=== PATIENT | female | born 1995 | race Hispanic/Latino ===

== ENCOUNTER 2016-11-12 21:48 | Inpatient (IN) | payer OTHER ==
[~2016-11-12] VITALS: Ht 162.6 cm; Wt 107.5 kg
[~2016-11-12 21:48] MED LIST: ALBUTEROL SULFAT3 M1 INH; FLEXERIL10 MG PO; IBUPROFEN800 M1 PO; LEVSIN-SL0.125 MG SL; MECLIZINE HCL25 MG PO; MOBIC 15MG15 MG PO; MONTELUKAST SOD10 MG PO; MOTRIN 600 MG600 MG PO; MOTRIN800 MG PO; NASONEX0.05 MG/Ac NAS; PERCOCET 325 MG1 TA2 PO; PRENATAL1 TA2 PO; PROAIR HFA0.09 MG/Ac INH; PROTONIX 40MG T40 MG PO; TRAMADOL HCL50 M1 PO; TYLENOL #31 TAB PO; ZOFRAN ODT4 M1 SL
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
[2016-11-12 22:50] LABS: ABSOLUTE BASOPHIL COUNT 0 /CUMM (0.0-0.2); ABSOLUTE EOSINOPHIL COUNT 0.1 /CUMM (0.0-0.7); ABSOLUTE GRANULOCYTE CT 7.9 /CUMM (1.4-6.5); ABSOLUTE MONOCYTE COUNT 0.8 /CUMM (0.10-0.60); BASOPHIL % 0.3 % (0.0-2.0); EOSINOPHIL % 0.5 % (0-5); GRANULOCYTE % 73.6 % (42.2-75.2); HEMATOCRIT 39.6 % (37-47); MEAN CORPUSCULAR HGB 26.8 PG (27.0-31.0); MEAN CORPUSCULAR HGB CONC 33.1 G/DL (33.0-37.0); MEAN CORPUSCULAR VOLUME 80.9 FL (81.0-99.0); MEAN PLATELET VOLUME 8.4 FL (7.4-10.4); PLATELET COUNT 307 /CUMM (130-400); RBC DISTRIBUTION WIDTH 15.5 % (11.5-14.5); RED BLOOD CELL CT 4.89 /CUMM (4.20-5.40); WHITE BLOOD CELL COUNT 10.7 /CUMM (4.8-10.8)
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
[2016-11-13] MEDS ORDERED: ALBUTEROL2.5 MG/3 M INH/SOL (15:41)
[2016-11-13] MEDS ORDERED: PROAIR HFA8.5 GM INH (15:42)
[2016-11-13] MEDS ORDERED: IBUPROFEN800 M1 PO (15:42)
[2016-11-13] MEDS ORDERED: MONTELUKAST SOD10 M1 PO (15:42)
[2016-11-13 19:48] VITALS: BP 139/74
[2016-11-14 07:59] VITALS: BP 147/91
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
[2016-11-14 12:26] VITALS: BP 141/82
--- NOTE | 2016-11-14 13:23 | History & Physical ---
General Information and HPI History of Present Illness: This young female was admitted for the first time to [facility] because of psychotic behavior. She also reports that she was admitted in [place] in a psychiatric hospital in the past and was diagnosed with psychotic behavior. She does admit that she was very angry with her fianc and started breaking things in the house at which point she called 911 for some help and was brought to the hospital she denies any specific physical problems recently. She has a history of bronchial asthma since age 2 and she claims that he rarely she takes albuterol inhaler as needed and this winter has been fairly good and she has not needed much of inhaler. He also claims that she has a history of polycystic ovarian syndrome and sees her dynamics ax technical architect for that and has been treated for that. There is no other significant history. Allergies/Medications Allergies: Coded Allergies: NO KNOWN ALLERGIES (03/17/16) Home Med list Albuterol Sulfate 2.5 MG/3 ML (0.083 %) VIAL.NEB 1 Vial INH/SUZIE PRN ASTHMA ( Reported) Albuterol Sulfate (Proair Hfa) 90 MCG HFA.AER.AD 2 PUF INH PRN ASTHMA ( Reported) Ibuprofen 800 MG TABLET 1 TAB PO TID PRN PAIN (Reported) Montelukast Sodium 10 MG TABLET 1 TAB PO DAILY ASTHMA (Reported) Past History Travel History Traveled to [place] past 21 day No Medical History Neurological: NONE EENT: NONE Cardiovascular: NONE Respiratory: asthma Gastrointestinal: NONE Hepatic: NONE Renal: NONE Musculoskeletal: NONE Psychiatric: anxiety, depression, psychosis, ADHD Endocrine: NONE Blood Disorders: NONE Cancer(s): NONE 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 Denies: no symptoms. EENTM: Denies: no symptoms. Cardiovascular: Denies: no symptoms. Respiratory: Denies: no symptoms. GI: Denies: no symptoms. Genitourinary: Reports: see HPI. Denies: no symptoms. Musculoskeletal: Denies: no symptoms. Skin: Denies: no symptoms. Neurological/Psychological: Reports: see HPI, anxiety, emotional problems. Hematologic/Endocrine: Denies: no symptoms. Immunologic/Allergic: Denies: no symptoms. All Other Systems: Reviewed and Negative Exam & Diagnostic Data Last 24 Hrs of Vital Signs/I&O Vital Signs Date Time Temp Pulse Resp B/P Pulse O2 O2 Flow FiO2 Ox Delivery Rate 11/14 1226 94 141/82 11/14 0759 97.1 97 147/91 11/13 1948 99.2 88 139/74 11/13 1604 98.0 89 16 136/64 98 Room Air Intake & Output 11/14 1600 11/14 0800 11/14 0000 Intake Total Output Total Balance Patient 237 lb Weight Physical Exam General Appearance Alert, Oriented X3, Cooperative, No Acute Distress Skin No Rashes, No Breakdown, No Significant Lesion HEENT Atraumatic, PERRLA, EOMI, Mucous Membr. moist/pink Neck Supple, No JVD, No thryomegaly, +2 Carotid Pulse wo Bruit Lymphatic Cervical nl Cardiovascular Regular Rate, Normal S1, Normal S2, No Murmurs, Gallops, Rubs Lungs Clear to Auscultation, Normal Air Movement Abdomen Normal Bowel Sounds, Soft, No Tenderness, No Hepatospenomegaly, No Masses Neurological Exam Findings: Normal Gait, Normal Speech, Strength at 5/5 X4 Ext, Normal Tone, Cranial Nerves 3-12 NL, Reflexes 2+ Cranial Nerves II through XII: Within normal limits Extremities No Clubbing, No Cyanosis, No Edema, No Tenderness/Swelling Assessment/Plan Assessment: This young overweight female was admitted to the hospital for nonspecific psychosis for the first time. She has a history of previous admission in a psychiatric hospital in [place] is not taking any psychiatric medication as outpatient and has not been seeing any psychiatrist in the area. From medical standpoint she claims to have a history of bronchial asthma but is not using much inhaler recently because her breathing is fine and there are no physical signs of any asthma at this time. We can continue her on albuterol inhaler on a when necessary basis but she does not require any other specific treatment or workup. Her basic blood work including CBC electrolytes liver function are normal and the urine toxicology screen is negative for any drugs of abuse. She does not require any other workup from medical standpoint and will be seen when necessary basis As Ranked By This Provider Problem List: 1. Suicidal ideation 2. Anxiety 3. Asthma Miscellaneous Miscellaneous Documentation Attending Case Discussed With: MARGARET LONDONO MD Primary Care Physician: SUYAPA FREY APRN Patient sees these Specialists none Level of Patient Care: PILLO Quiros Attending MD Review Statement Attending Statement Attending MD Statement: examined this patient, reviewed EMR data (avail), discussed with nursing Attending Assessment/Plan: This young overweight female is admitted for psychotic behavior. She has previous history of psychosis as well as a history of bronchial asthma for which she uses Ventolin inhaler very rarely on a when necessary basis. She is stable from medical standpoint at this time and does not need any workup or treatment.
[2016-11-14 15:48] VITALS: BP 152/91
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
--- NOTE | 2016-11-14 16:24 | SOCIAL WORKER [place] PLAN PSYCH ---
Treatment Plan - Please Document: - Evidence that there is ongoing collaboration between - the patient and the interdisciplinary team, - including the patient's active participation and - responsibility for engaging in the treatment regimen, - and that the treatment plan is individualized and - relevant to the patient's conditions. - Treatment plan should reflect documentation indicating - that all active therapeutic efforts are included. Strengths/Capabilities: Pt is asking for help Pt is aware of mental health symptoms Physical Limitations (Interventions): None reported Patient Identified Trmt Goals: "I need to get back into therapy" Discharge Plan: [facility] Problem/Goals #1 Problem #1: depression Goal (Short Term): patient will attend 75% of groups Goal (Long-Term): patient will commit to Intensive Outpatient treatment for support Interventions: patient will be offered medication management with the PULMONARY PHYSICIAN, patient will be offered groups on coping skills, symptom management, relaxation, art therapy. Orthotic Fitter will hold family meeting and help assist with aftercare treatment. DSM5/PS Stressors/Medical Prob Diagnosis' (DSM 5, Stressors, Medical): F32.9 Unspecified Depression, F43.10 PTSD Unspecified, Z60.9 Unspecified Problems related to Social Environment, Unemployed Current GAF: 30 Treatment Team - Responsibilities of members of the treatment team include: - Medication Management- MD or PULMONARY PHYSICIAN - Medication Administration and Monitoring- Nurse - Group Therapy- Occupational Therapist - 1:1 Therapy,Disch Planning,family involvement-Orthotic Fitter
[2016-11-14 19:55] VITALS: BP 140/96
[2016-11-15 08:01] VITALS: BP 128/92
--- NOTE | 2016-11-15 08:17 | CP SOUTH PROGRESS NOTE PSYCH ---
Psych (Inpt) Progress Note Progress Note Include the following elements, when applicable: Involvement in the active treatment of the patient with behavioral observations of the patient and the patient's response to the treatment. Review of the ongoing treatment process in the context of the treatment plan. Indication of how multi-disciplinary staff members are carrying out the treatment plan. Plans for future interventions and recommendations for revision of the treatment plan. Liaison with other physicians/providers. Progress Note: [I discussed this patient's progress to date, current mental status, treatment process in the context of the treatment plan, and discharge planning with staff/ team in the daily morning inpatient team meeting. I also met with the patient myself in individual session.] SUBJECTIVE: "I feel good." OBJECTIVE: Current Medications Sig/Katya Start time Last Medication Dose Route Stop Time Status Admin Albuterol Sulfate 2 PUF Q4 HRS NEEDED PRN 11/13 2300 AC 11/14 INH 1113 Citalopram 20 MG DAILY 11/14 1000 CAN Hydrobromide PO Diphenhydramine HCl 50 MG Q6-PRN PRN 11/14 1115 AC PO Ibuprofen 800 MG TID PRN 11/13 2300 AC 11/14 PO 2116 Montelukast Sodium 10 MG 2200 11/14 2200 AC 11/14 PO 2116 Multivitamins 1 TAB 0800 11/14 1700 AC 11/14 PO 1748 Risperidone 0.25 MG BID 11/13 2330 DC 11/13 PO 2322 Trazodone HCl 50 MG AT BEDTIME NEED.. 11/13 2300 DC PO Vital Signs Date Time Temp Pulse Resp B/P Pulse O2 O2 Flow FiO2 Ox Delivery Rate 11/15 0801 98.1 98 128/92 11/14 1955 98.3 97 140/96 11/14 1548 93 152/91 11/14 1226 94 141/82 ASSESSMENT: Chart, progress notes, VS, labs, and medication list were reviewed. Met with patient today, together with Alondra Ugarte LCSW, and the patient's fiance, Abram, for a family meeting. The patient's psychiatric history, treatment progress to date, level of safety and discharge planning were reviewed. The patient's fiance, Abram, expressed no safety concerns with the patient returning home, however related that she needs therapy. The patient and her fiance, Abram, was in favor of discharge plan to follow-up at [facility] for psychiatric symptom management. The patient refused trials of psychotropics given current focus on getting , despite educating the patient on the risks/benefits of psychotropics. Reviewed with patient that if needed, medications could be further explored during IOP course. Patient was agreeable to information and verbalized understanding of education. Today, on the date of discharge, the patient presented alert and oriented to person, place, time and situation. Affect was full-range and bright. Mood was euthymic. Speech was normal in rate, tone and volume. Eye contact was appropriate. She reported her appetite and sleep were good. She denied having nightmares. She reported depression of 0/10 (10 being the worst) and anxiety of 0/10 (10 being the worst). She denied having panic attacks, intrusive or racing thoughts. She denied feeling hopeless, helpless, worthless and guilty. She denied active and passive suicidal ideation, plans and intent. She stated and also believed she will not harm herself or others. She identified protective factors of her fiance "Abram," "myself," and "wanting to get ." She appeared future oriented to attend [facility] for continued management of psychiatric symptoms. She remained resistant to trialing psychotropic medications, given focus on wanting to get . She denied auditory and visual hallucinations. There was no evidence of paranoia or delusions. Thought process was organized and goal-directed. Thought content was appropriate. Cognition was grossly intact. Patient reported feeling safe and ready for discharge, and verbalized safety plan to call 911/go to nearest emergency department in the event of an emergency. PLAN: 1. Discharge today to home and fiance. 2. F/u with [facility] intake on 11/16/16 at 9:30AM. Patient verbalized understanding of appointment. 3. Discharge prescriptions were called into [facility], [place], [place]. 4. In the event of an emergency, call 911/go to nearest emergency department. Patient verbalized understanding of instruction.
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
[2016-11-15] MEDS ORDERED: MONTELUKAST SOD10 M1 PO (12:05)
[2016-11-15] MEDS ORDERED: ONE DAILY MULT1 EAC2 PO (12:05)
--- NOTE | 2016-11-15 12:06 | SOCIAL WORKER PROG NOTE PSYCH ---
Social Work Progress Note Progress Note Ml's gurdeep Valverde came in for a meeting today. He presented as somewhat grandiose and possessive. His biggest concern was about his perception of Ml "lying" to him. He believes that she has been cheating on him. He stated that he wants her by his side and wants a life with her. He said he wants to start fresh from today. She continues to deny that she was cheating. There is obvious tension between what happened, but both want to be together and talk about trying to have a baby. He is 52 years old. I attempted to ask him several times about her safety and if he had any concerns about her mental health. He stated that she needed to be in therapy, but didn't elaborate. Didn 't have any concerns about her safety. I told Ml that the team would like her to do IOP instead of outpatient. She seemed agreeable. I asked her what she could do if she started to have thoughts of hurting herself? She said she could reach out to a crisis line. She was reminded that she could call 911 or come to the ER. Abram was happy to have her come back home today. We scheduled an IOP intake for tomorrow at 9:30am. Abram will drive her home when she's ready.
[2016-11-15 12:10] VITALS: BP 143/78
== END 2016-11-15 12:47 | DRG 751 ==
LOC: ENRESERVDT → ENRESERVTM → ERH 21:48 → ERHI 11-13 14:35 → CP SOUTH 11-13 14:35 → ENPENDDIS 11-13 14:35 → CP SOUTH 11-13 17:37
PROVIDERS: Emergency Medicine; ADMIT Psychiatry & Neurology Psychiatry
DX: F33.2 Major depressive disorder, recurrent severe without psychotic features (principal); E66.9 Obesity, unspecified; N83.209 Unspecified ovarian cyst, unspecified side
CPT/HCPCS: 80307; 81025; G0463; G0480; J3490

== ENCOUNTER 2017-02-27 16:43 | Emergency (ER) | payer OTHER ==
[~2017-02-27] VITALS: Ht 162.6 cm; Wt 113.4 kg
[~2017-02-27 16:43] MED LIST changes: +ALBUTEROL2.5 MG/3 M INH/SOL; +MONTELUKAST SOD10 M1 PO; +ONE DAILY MULT1 EAC2 PO; +PROAIR HFA8.5 GM INH
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
[2017-02-27] MEDS ORDERED: PREDNISONE10 M2 PO (20:15)
[2017-02-27 20:52] VITALS: BP 135/76
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
[2017-02-27] MEDS ORDERED: CYCLOBENZAPRINE10 M1 PO (21:07)
[2017-02-27] MEDS ORDERED: IBUPROFEN800 M1 PO (21:07)
== END 2017-02-27 21:15 ==
LOC: ERH 16:43
DX: S46.911A Strain of unspecified muscle, fascia and tendon at shoulder and upper arm level, right arm, initial encounter (principal); S53.401A Unspecified sprain of right elbow, initial encounter; V49.50XA Passenger injured in collision with unspecified motor vehicles in traffic accident, initial encounter; Y92.9 Unspecified place or not applicable
CPT/HCPCS: 73030-RT; 73080-RT; 81025

== ENCOUNTER → 2017-09-27 | Day surgery (SDC) | payer OTHER ==
[~2017-09-27] VITALS: Ht 162.6 cm; Wt 104.3 kg
[~2017-09-27] MED LIST changes: +CYCLOBENZAPRINE10 M1 PO; +PREDNISONE10 M2 PO
--- NOTE | 2017-10-02 10:53 | Operative Report ---
Operative/Inv Procedure Report Surgery Date: 09/27/17 Name of Procedure: Diagnostic laparoscopy lysis of adhesions and chromopertubation Pre-Operative Diagnosis: Pelvic pain Post-Operative Diagnosis: PID Estimated Blood Loss: scant Surgeon/Guest Service Supervisor: Leighann Galicia MD Anesthesia: general endotracheal tube Operative/Procedure Note Note: Received an outpatient was taken the operating room placed prone position after adequate anesthesia patient placed in dorsolithotomy position the vagina from dorsal fashion bladder was catheterized examination under anesthesia performed CO2 tenaculum was on the Intralipid cervix gentle downward traction at this point Joshua cannula remained place surgeon regowned and gloved at the level the umbilicus a stab incision was made to allow for the entry of Veress needle the abdomen was insufflated possibly 4 L of CO2 to liver edge dullness which point the Veress needle was removed a 10 mm trocar was inserted atraumatically the umbilicus through that sheath a laparoscope was placed under direct visualization a 5 mm port was placed 2 fingerbreadths of symptoms pubis in midline through that port a peanut was placed and lysis of adhesions were performed on the left ovary at this point chromopertubation using methylene blue was performed and was noted that the left tube was closed filmy adhesions were lysed using a peanut hemostasis was apparent the dye flowed into the right and left tube ovaries and normal this point the on since removed from the abdomen pictures were taken of the incision at the umbilicus was oversewn for the fascia for 030 was used for both skin incisions sterile dressings were applied patient tolerated that well at the end of the case Joshua cannula was removed the Xiong was removed the patient was returned spine position to awake from anesthesia and transferred recovery room awake and alert with counts correct. Findings: Size uterus normal ovaries bilaterally evidence of an old tubo-ovarian abscess between the left tube and left ovary the left tube was blocked after chromopertubation and lysis of adhesions to left tube was open
== END ==
LOC: STS 01:26
DX: N73.9 Female pelvic inflammatory disease, unspecified (principal); R19.09 Other intra-abdominal and pelvic swelling, mass and lump; J45.909 Unspecified asthma, uncomplicated; E66.9 Obesity, unspecified
CPT/HCPCS: 81025; C9399; J1100; J2250; J2405; Q9968